=== PATIENT | female | born 1985 | race Caucasian/White ===

== ENCOUNTER 2017-03-08 14:46 | Outpatient (CLI) ==
--- NOTE | 2017-03-08 15:27 | DI ---
EXAM: Thoracic spine radiographs. HISTORY: Back pain. COMPARISON: None available. TECHNIQUE: Frontal, lateral and swimmer's views. FINDINGS: The normal curvature and alignment are maintained. Vertebral body and intervertebral dis c heights are normal. No fracture or subluxation seen. Mild endplate osteophyte formation noted in the lower thoracic spine. Adjacent soft tissues are unremarkable. IMPRESSION: Mild lower thoracic degenerative disc disease.
--- NOTE | 2017-03-08 15:29 | DI ---
EXAM: Lumbar spine radiographs. HISTORY: Back pain. COMPARISON: 01/22/2012. TECHNIQUE: 5 views of the lumbar spine. FINDINGS: Mild left convex curvature centered in the mid lumbar spine noted. Alignment is normal. Vertebral body heights are maintained. There is moderate loss of disc height at L3-4 with associat ed endplate osteophyte formation. No fracture or subluxation detected. Soft tissues are unremarkab le. IMPRESSION: 1. Degenerative disc disease at L3-4. 2. Left convex lumbar curvature.
== END 2017-03-08 14:47 | disposition home or self-care (01) ==
LOC: RAD 14:46
PROVIDERS: ATTEND Family Medicine
DX: M54.40 Lumbago with sciatica, unspecified side (principal)